=== PATIENT | male | born 1985 | race Caucasian/White ===

== ENCOUNTER 2018-01-30 21:31 | Emergency (ER) | payer OTHER ==
[2018-01-30] MEDS: ACETAMINOPHEN 325 MG TAB PO (22:30)
[2018-01-30] MEDS: NS 1,000 ML IV (22:45)
[2018-01-30] MEDS: KETOROLAC 30 MG/ML VIAL (J1885) IV (22:45)
[2018-01-30] MEDS: METOCLOPRAMIDE INJ 10MG/2ML VIAL (J2765) IV (22:45)
== END 2018-01-31 00:51 | disposition home or self-care (01) ==
LOC: M ED 01-31 00:51
DX: G43.909 Migraine, unspecified, not intractable, without status migrainosus (principal); Z88.8 Allergy status to other drugs, medicaments and biological substances
CPT/HCPCS: J1885